=== PATIENT | female | born 1975 | race Caucasian/White ===

== ENCOUNTER 2025-08-20 18:27 | Emergency (ER) | payer OTHER ==
[2025-08-20 19:11] LABS: GLUCOSE,URINE NEGATIVE (NEGATIVE); OCCULT BLOOD,URINE LARGE (NEGATIVE)
[2025-08-20 19:15] LABS: APPEARANCE,URINE CLOUDY
[2025-08-20 19:25] LABS: EPITHELIAL CELLS,URINE FEW (NONE-FEW)
== END 2025-08-20 19:44 | disposition home or self-care (01) ==
LOC: MW.ED 18:27
DX: N39.0 Urinary tract infection, site not specified (principal); I10 Essential (primary) hypertension; Z79.899 Other long term (current) drug therapy
CPT/HCPCS: 81001; 87086; 87088; 87186; 99283; A9270